=== PATIENT | female | born 1965 | race Caucasian/White ===

== ENCOUNTER 2018-04-16 18:26 | Emergency (ER) | payer OTHER ==
[2018-04-16 19:32] LABS: BILIRUBIN,URINE Small (NEGATIVE); COLOR,URINE Red (YELLOW); GLUCOSE, URINE (UA) Negative (NEGATIVE); KETONES,URINE Negative (NEGATIVE); LEUKOCYTE ESTERASE ,URINE Large (NEGATIVE); NITRATE,URINE Positive (NEGATIVE); OCCULT BLOOD,URINE Large (NEGATIVE); PH,URINE 5.5 (5.0-8.0); PROTEIN,URINE 300 (NEGATIVE); UROBILINOGEN,URINE 0.2 mg/dL (0.2-1.0)
[2018-04-16] MEDS ORDERED: ONDANSETRON HCL 4 MG/2 ML VIAL ONE (19:39)
[2018-04-16] MEDS ORDERED: KETOROLAC TROMETHAMINE 30MG/ML ONE (19:40)
[2018-04-16 19:41] LABS: EOSINOPHILS % (AUTO) 1.6 % (0.0-8.0); HEMATOCRIT 41.4 % (36-48); LYMPHOCYTES % (AUTO) 16.4 % (21.0-51.0); MEAN CORPUSCULAR HEMOGLOBIN 28.4 pg (27.0-33.0); MEAN CORPUSCULAR HGB CONC 32.9 g/dL (32.0-36.0); MEAN CORPUSCULAR VOLUME 86.5 fL (79-99); PLATELET COUNT (AUTO) 289 K/uL (130-400); RED BLOOD CELL COUNT(AUTO) 4.78 MIL/uL (4.00-5.50); RED CELL DISTRIBUTION WIDTH 13.3 % (11.0-15.5); WHITE BLOOD COUNT (AUTO) 12.6 K/uL (4.8-10.8)
[2018-04-16 19:52] LABS: APPEARANCE,URINE Turbid (CLEAR)
[2018-04-16 20:00] LABS: CREATININE 1.2 mg/dL (0.5-1.5); POTASSIUM 3.9 mmol/L (3.5-5.1)
[2018-04-16 20:05] LABS: ALBUMIN 3.5 g/dL (3.5-5.0); BILIRUBIN,DIRECT 0.1 mg/dL (0.0-0.3); BILIRUBIN,TOTAL 0.2 mg/dL (0.2-1.0)
[2018-04-16 20:16] LABS: BACTERIA,URINE Rare /HPF (None Seen); RBC,URINE Full Field /HPF (0-1); SQUAMOUS EPITHELIAL CELL,UR None Seen /HPF (0-2); WBC,URINE >100 /HPF (0-1)
[2018-04-16] MEDS ORDERED: CEFTRIAXONE SODIUM 1 GM ONE (20:31)
== END 2018-04-16 20:46 | disposition home or self-care (01) ==
LOC: EDBD 18:26 → EDH 18:26
DX: N39.0 Urinary tract infection, site not specified (principal); N13.39 Other hydronephrosis; N20.0 Calculus of kidney; Z90.710 Acquired absence of both cervix and uterus; Z88.1 Allergy status to other antibiotic agents
CPT/HCPCS: 36415; 74176; 80048; 80076; 81001; 85025; 87088; 96374; 96375; 99284; J0696; J1885; J2405

== ENCOUNTER 2018-12-21 00:22 | Emergency (ER) | payer OTHER ==
[2018-12-21] MEDS ORDERED: DiphenhydrAMINE HCL 50 MG/ML VIAL ONE (00:48)
[2018-12-21 01:09] LABS: BASOPHILS % (AUTO) 1.2 % (0.0-5.0); EOSINOPHILS % (AUTO) 1.1 % (0.0-8.0); HEMATOCRIT 42.4 % (36-48); LYMPHOCYTES % (AUTO) 34.5 % (21.0-51.0); MEAN CORPUSCULAR HEMOGLOBIN 29.4 pg (27.0-33.0); MEAN CORPUSCULAR HGB CONC 33.5 g/dL (32.0-36.0); MEAN CORPUSCULAR VOLUME 87.8 fL (79-99); MONOCYTES % (AUTO) 3.2 % (3.0-13.0); NUCLEATED RED BLOOD CELLS 0.1 % (0.0-0.19); PLATELET COUNT (AUTO) 243 K/uL (130-400); RED BLOOD CELL COUNT(AUTO) 4.83 MIL/uL (4.00-5.50); RED CELL DISTRIBUTION WIDTH 13.9 % (11.0-15.5); WHITE BLOOD COUNT (AUTO) 8.8 K/uL (4.8-10.8)
[2018-12-21 01:14] LABS: CREATININE 0.9 mg/dL (0.5-1.5); POTASSIUM 3.7 mmol/L (3.5-5.1)
[2018-12-21 02:03] LABS: APPEARANCE,URINE Cloudy (CLEAR); BILIRUBIN,URINE Negative (NEGATIVE); COLOR,URINE Yellow (YELLOW); GLUCOSE, URINE (UA) Negative (NEGATIVE); KETONES,URINE Negative (NEGATIVE); LEUKOCYTE ESTERASE ,URINE Small (NEGATIVE); NITRATE,URINE Negative (NEGATIVE); OCCULT BLOOD,URINE Negative (NEGATIVE); PROTEIN,URINE Negative (NEGATIVE); UROBILINOGEN,URINE 0.2 mg/dL (0.2-1.0)
[2018-12-21 02:05] LABS: HCG,QUAL RESULT NEGATIVE (NEGATIVE)
[2018-12-21] MEDS ORDERED: METHYLPREDNISOLONE SOD SUCC 40MG/ML 1ML ONE (02:10)
[2018-12-21 02:21] LABS: BACTERIA,URINE Rare /HPF (None Seen); RBC,URINE None Seen /HPF (0-1); SQUAMOUS EPITHELIAL CELL,UR Few /HPF (0-2); WBC,URINE 0-1 /HPF (0-1)
== END 2018-12-21 02:28 | disposition home or self-care (01) ==
LOC: EDH 00:22
DX: T78.49XA Other allergy, initial encounter (principal); Z87.442 Personal history of urinary calculi; Z88.1 Allergy status to other antibiotic agents; Z88.8 Allergy status to other drugs, medicaments and biological substances; X58.XXXA Exposure to other specified factors, initial encounter
CPT/HCPCS: 36415; 71045; 80048; 81001; 81025; 83605; 85025; 87804 ×2; 96374; 96375; 99285; J1200; J2920

== ENCOUNTER → 2020-06-18 | Outpatient (CLI) | payer OTHER | END | disposition home or self-care (01) | LOC: SHCH 08:08 | PROVIDERS: ATTEND Internal Medicine Cardiovascular Disease | DX: R01.1 Cardiac murmur, unspecified (principal); R07.9 Chest pain, unspecified | CPT/HCPCS: 93306; 93356 ==

== ENCOUNTER → 2020-06-30 | Outpatient (CLI) | payer OTHER ==
[~2020-06-30] VITALS: Ht 149.9 cm; Wt 105.2 kg
[~2020-06-30] MED LIST: REGADENOSON 0.4 MG/5 ML PF SYG IVP SCH
== END | disposition home or self-care (01) ==
LOC: SHCH 08:05
PROVIDERS: ATTEND Internal Medicine Cardiovascular Disease
DX: R94.31 Abnormal electrocardiogram [ECG] [EKG] (principal); R07.9 Chest pain, unspecified
CPT/HCPCS: 78452; 93017; 96374; A9500 ×2

== ENCOUNTER 2020-11-07 04:30 | Emergency (ER) | payer OTHER ==
[~2020-11-07] VITALS: Ht 149.9 cm; Wt 107.5 kg
[2020-11-07] MEDS ORDERED: 0.9%NACL 1000ML 1,000 ML IV ONE (05:00)
[2020-11-07] MEDS ORDERED: HYDROMORPHONE 1 MG INJ IVP ONE (05:00)
[2020-11-07] MEDS ORDERED: KETOROLAC 30MG VIAL (30MG/ML) IVP ONE (05:00)
[2020-11-07] MEDS ORDERED: ONDANSETRON 4MG INJ IVP ONE (05:00)
[2020-11-07 05:20] LABS: BASOPHILS % (AUTO) 0.4 % (0.0-5.0); EOSINOPHILS % (AUTO) 0.4 % (0.0-8.0); LYMPHOCYTES % (AUTO) 10.2 % (21.0-51.0); MEAN CORPUSCULAR HEMOGLOBIN 28.4 pg (27.0-33.0); MEAN CORPUSCULAR HGB CONC 32.4 g/dL (32.0-36.0); MEAN CORPUSCULAR VOLUME 87.7 fL (79-99); MONOCYTES % (AUTO) 8.4 % (3.0-13.0); PLATELET COUNT (AUTO) 307 K/uL (130-400); RED BLOOD CELL COUNT(AUTO) 4.79 MIL/uL (4.00-5.50); RED CELL DISTRIBUTION WIDTH 12.9 % (11.0-15.5); WHITE BLOOD COUNT (AUTO) 16.1 K/uL (4.8-10.8)
[2020-11-07] MEDS ORDERED: ONDANSETRON 4MG INJ ONE (05:20)
[2020-11-07] MEDS ORDERED: KETOROLAC 30MG VIAL (30MG/ML) ONE (05:20)
[2020-11-07 05:21] LABS: APPEARANCE,URINE SL CLOUDY (CLEAR); BILIRUBIN,URINE MODERATE (NEGATIVE); COLOR,URINE YELLOW (YELLOW); GLUCOSE, URINE (UA) NEGATIVE (NEGATIVE); KETONES,URINE 15 mg/dL (NEGATIVE); LEUKOCYTE ESTERASE ,URINE TRACE (NEGATIVE); NITRATE,URINE NEGATIVE (NEGATIVE); OCCULT BLOOD,URINE TRACE-INTACT (NEGATIVE); PROTEIN,URINE 100 mg/dL (NEGATIVE)
[2020-11-07] MEDS ORDERED: HYDROMORPHONE 1 MG INJ ONE (05:21)
[2020-11-07 05:33] LABS: ALBUMIN 3.4 g/dL (3.5-5.0); BILIRUBIN,TOTAL 0.6 mg/dL (0.2-1.0); CREATININE 0.9 mg/dL (0.5-1.5); POTASSIUM 3.8 mmol/L (3.5-5.1); TOTAL PROTEIN, SERUM 8.2 g/dL (6.0-8.3)
[2020-11-07 05:47] LABS: BACTERIA,URINE Moderate /HPF (None Seen); HYALINE CASTS, URINE 0-1 /LPF (0-1 /LPF); MUCUS,URINE Few LPF (None Seen)
[2020-11-07 06:33] VITALS: BP 119/62
[2020-11-10] MEDS ORDERED: LATA2.5D14 OU (10:59)
[2020-11-10] MEDS ORDERED: BRIM5DRO4 OU (10:59)
== END 2020-11-07 07:10 | disposition home or self-care (01) ==
LOC: EDH 04:30
DX: N39.0 Urinary tract infection, site not specified (principal); Z79.1 Long term (current) use of non-steroidal anti-inflammatories (NSAID); Z79.899 Other long term (current) drug therapy; Z88.0 Allergy status to penicillin; Z88.1 Allergy status to other antibiotic agents; Z88.2 Allergy status to sulfonamides
CPT/HCPCS: 36415; 74176; 80053; 81001; 85025; 87088; 96361; 96374; 96375; 99284; J1170; J1885; J2405; J7030

== ENCOUNTER 2020-11-09 09:03 | Inpatient (IN) | payer OTHER ==
[~2020-11-09] VITALS: Ht 149.9 cm; Wt 102.7 kg
[2020-11-09 09:35] LABS: BASOPHILS % (AUTO) 0.9 % (0.0-5.0); EOSINOPHILS % (AUTO) 1.3 % (0.0-8.0); HEMATOCRIT 42.3 % (36-48); MEAN CORPUSCULAR HEMOGLOBIN 28.6 pg (27.0-33.0); MEAN CORPUSCULAR HGB CONC 32.6 g/dL (32.0-36.0); MEAN CORPUSCULAR VOLUME 87.8 fL (79-99); MONOCYTES % (AUTO) 8.7 % (3.0-13.0); NEUTROPHILS % (AUTO) 61.7 % (40.0-77.0); PLATELET COUNT (AUTO) 315 K/uL (130-400); RED BLOOD CELL COUNT(AUTO) 4.82 MIL/uL (4.00-5.50); RED CELL DISTRIBUTION WIDTH 12.8 % (11.0-15.5); WHITE BLOOD COUNT (AUTO) 7.8 K/uL (4.8-10.8)
[2020-11-09 09:43] LABS: CREATININE 0.7 mg/dL (0.5-1.5)
[2020-11-09 09:48] LABS: ALBUMIN 3.4 g/dL (3.5-5.0); BILIRUBIN,TOTAL 0.3 mg/dL (0.2-1.0); TOTAL PROTEIN, SERUM 8.4 g/dL (6.0-8.3)
[2020-11-09 09:59] LABS: APPEARANCE,URINE Clear (CLEAR); BILIRUBIN,URINE Negative (NEGATIVE); COLOR,URINE Yellow (YELLOW); GLUCOSE, URINE (UA) Negative (NEGATIVE); KETONES,URINE 40 mg/dL (NEGATIVE); LEUKOCYTE ESTERASE ,URINE Negative (NEGATIVE); NITRATE,URINE Negative (NEGATIVE); OCCULT BLOOD,URINE Negative (NEGATIVE); PROTEIN,URINE Negative (NEGATIVE)
[2020-11-09 10:05] LABS: AMPHET/METH SCREEN,URINE NEGATIVE (NEGATIVE); BARBITURATE SCREEN, URINE NEGATIVE (NEGATIVE); BENZODIAZEPINES SCREEN,URINE NEGATIVE (NEGATIVE); CANNABINOID SCREEN,URINE NEGATIVE (NEGATIVE); COCAINE SCREEN,URINE NEGATIVE (NEGATIVE); OPIATE SCREEN,URINE NEGATIVE (NEGATIVE); PHENCYCLIDINE SCREEN,URINE NEGATIVE (NEGATIVE)
[2020-11-09] MEDS ORDERED: ZOSYN 3.375GM+NS 50ML 50 ML ONE (10:20)
[2020-11-09] MEDS ORDERED: 0.9%NACL 50ML 50 ML IV ONE ×2 (10:21→17:32)
[2020-11-09] MEDS ORDERED: ASPIRIN 325MG TAB ONE (10:27)
[2020-11-09 10:29] LABS: RBC,URINE 0-1 /HPF (0-1); WBC,URINE 0-1 /HPF (0-1)
[2020-11-09 10:30] LABS: BACTERIA,URINE None Seen /HPF (None Seen); SQUAMOUS EPITHELIAL CELL,UR 0-2 /HPF (0-2)
[2020-11-09] MEDS ORDERED: ACETAMINOPHEN 325 MG TAB PO PRN (11:00)
[2020-11-09] MEDS ORDERED: DiphenhydrAMINE HCL 50 MG/ML VIAL IV PRN (11:00)
[2020-11-09] MEDS ORDERED: ONDANSETRON 4MG INJ IV PRN (11:00)
[2020-11-09] MEDS: 0.9%NACL 1000ML 1,000 ML IV SCH ×3 (12:50→21:53)
[2020-11-09] MEDS ORDERED: ZOSYN 3.375GM+NS 50ML 3.38 GM in 0.9%NACL 50ML 50 ML IV SCH (17:00)
[2020-11-09] MEDS: ZOSYN 3.375GM +NS 50ML IV SCH (17:37)
[2020-11-09 17:54] LABS: CHOLESTEROL 182 mg/dL (<200); HDL CHOLESTEROL 46 mg/dL (35-85); LDL DIRECT 110 mg/dL (0-99); TRIGLYCERIDES 95 mg/dL (30-200)
[2020-11-09] MEDS: FAMOTIDINE 20MG VIAL IV SCH (21:53)
[2020-11-09] MEDS: ATORVASTATIN 10 MG TABLET PO SCH (21:53)
[2020-11-10] MEDS: ZOSYN 3.375GM +NS 50ML IV SCH ×3 (00:40→18:25)
[2020-11-10 05:47] LABS: BASOPHILS % (AUTO) 0.7 % (0.0-5.0); EOSINOPHILS % (AUTO) 1.9 % (0.0-8.0); HEMATOCRIT 40.2 % (36-48); LYMPHOCYTES % (AUTO) 25.9 % (21.0-51.0); MEAN CORPUSCULAR HEMOGLOBIN 28.5 pg (27.0-33.0); MEAN CORPUSCULAR HGB CONC 32.6 g/dL (32.0-36.0); MEAN CORPUSCULAR VOLUME 87.6 fL (79-99); MONOCYTES % (AUTO) 8.5 % (3.0-13.0); NEUTROPHILS % (AUTO) 62.1 % (40.0-77.0); PLATELET COUNT (AUTO) 304 K/uL (130-400); RED BLOOD CELL COUNT(AUTO) 4.59 MIL/uL (4.00-5.50); RED CELL DISTRIBUTION WIDTH 12.9 % (11.0-15.5); WHITE BLOOD COUNT (AUTO) 8.8 K/uL (4.8-10.8)
[2020-11-10 06:25] LABS: HEMOGLOBIN A1C 5.7 % (4.0-6.0)
[2020-11-10] MEDS: 0.9%NACL 1000ML 1,000 ML IV SCH ×5 (06:25→22:44)
[2020-11-10 06:28] LABS: ALBUMIN 3.1 g/dL (3.5-5.0); BILIRUBIN,TOTAL 0.4 mg/dL (0.2-1.0); CREATININE 0.6 mg/dL (0.5-1.5); POTASSIUM 3.9 mmol/L (3.5-5.1); TOTAL PROTEIN, SERUM 7.7 g/dL (6.0-8.3)
[2020-11-10] MEDS ORDERED: DIATR MEGLU/DIATRIZOATE SODIUM 30 ML BOTTLE ONE (08:33)
[2020-11-10] MEDS ORDERED: ENOXAPARIN SODIUM 30 MG/0.3 ML SQ SCH (09:00)
[2020-11-10] MEDS ORDERED: ASPIRIN 81 MG EC TAB PO SCH (09:00)
[2020-11-10 09:10] VITALS: BP 174/81
[2020-11-10] MEDS ORDERED: BRIM5DRO4 OU ×2 (10:59)
[2020-11-10] MEDS ORDERED: LATA2.5D14 OU ×2 (10:59)
[2020-11-10] MEDS: FAMOTIDINE 20MG VIAL IV SCH ×2 (11:14→20:25)
[2020-11-10 12:00] VITALS: BP 182/77
[2020-11-10] MEDS ORDERED: IOHEXOL-350 75 ML VIAL IV ONE (12:57)
[2020-11-10 16:00] VITALS: BP 147/72
[2020-11-10] MEDS: KETOROLAC 15MG/ML VIAL (15MG/ML) IV PRN ×2 (17:04→23:05)
[2020-11-10 19:40] VITALS: BP 149/66
[2020-11-10] MEDS: ATORVASTATIN 10 MG TABLET PO SCH (20:26)
[2020-11-10 23:31] VITALS: BP 150/75
[2020-11-11] MEDS: ZOSYN 3.375GM +NS 50ML IV SCH ×3 (02:35→19:33)
[2020-11-11 04:30] VITALS: BP 170/72
[2020-11-11 05:08] LABS: BASOPHILS % (AUTO) 0.5 % (0.0-5.0); EOSINOPHILS % (AUTO) 1.6 % (0.0-8.0); HEMATOCRIT 40.6 % (36-48); LYMPHOCYTES % (AUTO) 17.9 % (21.0-51.0); MEAN CORPUSCULAR HEMOGLOBIN 27.9 pg (27.0-33.0); MEAN CORPUSCULAR HGB CONC 31.8 g/dL (32.0-36.0); MEAN CORPUSCULAR VOLUME 87.9 fL (79-99); MONOCYTES % (AUTO) 7.2 % (3.0-13.0); NEUTROPHILS % (AUTO) 72.2 % (40.0-77.0); PLATELET COUNT (AUTO) 318 K/uL (130-400); RED BLOOD CELL COUNT(AUTO) 4.62 MIL/uL (4.00-5.50); RED CELL DISTRIBUTION WIDTH 12.5 % (11.0-15.5); WHITE BLOOD COUNT (AUTO) 11.5 K/uL (4.8-10.8)
[2020-11-11 05:33] LABS: ALBUMIN 3.1 g/dL (3.5-5.0); BILIRUBIN,TOTAL 0.6 mg/dL (0.2-1.0); CREATININE 0.7 mg/dL (0.5-1.5); POTASSIUM 3.6 mmol/L (3.5-5.1); TOTAL PROTEIN, SERUM 7.6 g/dL (6.0-8.3)
[2020-11-11 08:00] VITALS: BP 128/74
[2020-11-11] MEDS ORDERED: HYDROMORPHONE 0.5 MG SYG (0.5MG/0.5ML) IVP PRN (08:30)
[2020-11-11] MEDS: FAMOTIDINE 20MG VIAL IV SCH ×2 (09:00→19:48)
[2020-11-11] MEDS ORDERED: ENOXAPARIN SODIUM 40 MG/0.4 ML SYRINGE SQ SCH (09:00)
[2020-11-11] MEDS: HYDROCHLOROTHIAZIDE 25 MG TABLET PO SCH (09:00)
[2020-11-11] MEDS: KETOROLAC 15MG/ML VIAL (15MG/ML) IV PRN ×2 (09:00→16:35)
[2020-11-11] MEDS: LISINOPRIL 10 MG TABLET PO SCH (09:00)
[2020-11-11 09:44] LABS: INR 1.05 (0.85-1.15); PROTHROMBIN TIME 11.4 SEC (9.6-11.6)
[2020-11-11 09:45] LABS: PARTIAL THROMBOPLASTIN TIME 28.8 SEC (26.3-35.5)
[2020-11-11 12:00] VITALS: BP 162/78
[2020-11-11 16:00] VITALS: BP 159/79
[2020-11-11 19:35] VITALS: BP 145/73
[2020-11-11] MEDS: ATORVASTATIN 10 MG TABLET PO SCH (19:48)
[2020-11-11] MEDS: 0.9%NACL 1000ML 1,000 ML IV SCH (19:49)
[2020-11-12] VITALS (7 sets, daily range): BP systolic 139–167; BP diastolic 72–82
[2020-11-12] MEDS: KETOROLAC 15MG/ML VIAL (15MG/ML) IV PRN ×2 (00:01→09:38)
[2020-11-12] MEDS: ZOSYN 3.375GM +NS 50ML IV SCH ×3 (03:21→17:10)
[2020-11-12 05:08] LABS: BASOPHILS % (AUTO) 0.7 % (0.0-5.0); EOSINOPHILS % (AUTO) 2.3 % (0.0-8.0); HEMATOCRIT 37.7 % (36-48); LYMPHOCYTES % (AUTO) 21.1 % (21.0-51.0); MEAN CORPUSCULAR HEMOGLOBIN 28.4 pg (27.0-33.0); MEAN CORPUSCULAR HGB CONC 32.9 g/dL (32.0-36.0); MEAN CORPUSCULAR VOLUME 86.5 fL (79-99); MONOCYTES % (AUTO) 8.8 % (3.0-13.0); NEUTROPHILS % (AUTO) 66.4 % (40.0-77.0); PLATELET COUNT (AUTO) 316 K/uL (130-400); RED BLOOD CELL COUNT(AUTO) 4.36 MIL/uL (4.00-5.50); RED CELL DISTRIBUTION WIDTH 12.5 % (11.0-15.5); WHITE BLOOD COUNT (AUTO) 8.7 K/uL (4.8-10.8)
[2020-11-12 05:17] LABS: CREATININE 0.7 mg/dL (0.5-1.5); CRP QUANTITATIVE 127.9 mg/L (0.00-9.0); POTASSIUM 3.7 mmol/L (3.5-5.1)
[2020-11-12] MEDS: FAMOTIDINE 20MG VIAL IV SCH ×2 (09:36→20:21)
[2020-11-12] MEDS: HYDROCHLOROTHIAZIDE 25 MG TABLET PO SCH (09:36)
[2020-11-12] MEDS: LISINOPRIL 10 MG TABLET PO SCH (09:37)
[2020-11-12] MEDS: 0.9%NACL 1000ML 1,000 ML IV SCH (11:40)
[2020-11-12] MEDS: ATORVASTATIN 10 MG TABLET PO SCH (20:21)
[2020-11-13] MEDS: ZOSYN 3.375GM +NS 50ML IV SCH ×2 (02:39→10:03)
[2020-11-13] MEDS: KETOROLAC 15MG/ML VIAL (15MG/ML) IV PRN (02:43)
[2020-11-13] MEDS: 0.9%NACL 1000ML 1,000 ML IV SCH (02:43)
[2020-11-13 03:18] VITALS: BP 142/68
[2020-11-13 04:57] LABS: BASOPHILS % (AUTO) 0.5 % (0.0-5.0); EOSINOPHILS % (AUTO) 2.2 % (0.0-8.0); HEMATOCRIT 39.4 % (36-48); LYMPHOCYTES % (AUTO) 20.1 % (21.0-51.0); MEAN CORPUSCULAR HGB CONC 31.7 g/dL (32.0-36.0); MEAN CORPUSCULAR VOLUME 88.3 fL (79-99); MONOCYTES % (AUTO) 9.1 % (3.0-13.0); NEUTROPHILS % (AUTO) 67.4 % (40.0-77.0); PLATELET COUNT (AUTO) 322 K/uL (130-400); RED BLOOD CELL COUNT(AUTO) 4.46 MIL/uL (4.00-5.50); RED CELL DISTRIBUTION WIDTH 12.5 % (11.0-15.5); WHITE BLOOD COUNT (AUTO) 9.5 K/uL (4.8-10.8)
[2020-11-13 05:08] LABS: CREATININE 0.8 mg/dL (0.5-1.5); CRP QUANTITATIVE 95.1 mg/L (0.00-9.0); POTASSIUM 3.5 mmol/L (3.5-5.1)
[2020-11-13 07:51] VITALS: BP 120/60
[2020-11-13] MEDS: LISINOPRIL 10 MG TABLET PO SCH (10:02)
[2020-11-13] MEDS: HYDROCHLOROTHIAZIDE 25 MG TABLET PO SCH (10:02)
[2020-11-13] MEDS: FAMOTIDINE 20MG VIAL IV SCH (10:05)
[2020-11-13 12:22] VITALS: BP 136/75
[2020-11-14] MEDS ORDERED: CEPH500B PO (17:28)
== END 2020-11-13 14:50 | disposition home or self-care (01) | DRG 391 ==
LOC: EDH 09:03 → EDHIP 10:48 → 3AH 11-10 07:49
PROVIDERS: ADMIT Internal Medicine; ATTEND Internal Medicine
DX: K57.20 Diverticulitis of large intestine with perforation and abscess without bleeding (principal); K65.0 Generalized (acute) peritonitis; Z68.42 Body mass index [BMI] 45.0-49.9, adult; E78.5 Hyperlipidemia, unspecified; N20.0 Calculus of kidney; I10 Essential (primary) hypertension; E66.01 Morbid (severe) obesity due to excess calories; R03.0 Elevated blood-pressure reading, without diagnosis of hypertension; Z88.0 Allergy status to penicillin; Z88.2 Allergy status to sulfonamides; Z88.8 Allergy status to other drugs, medicaments and biological substances; Z87.442 Personal history of urinary calculi; Z87.440 Personal history of urinary (tract) infections; Z90.710 Acquired absence of both cervix and uterus; Z90.721 Acquired absence of ovaries, unilateral; Z82.49 Family history of ischemic heart disease and other diseases of the circulatory system
CPT/HCPCS: 36415; 70450; 70551; 71045; 74176; 74177; 80048; 80053; 80061; 80305; 81001; 82550; 82607; 83036; 83690; 84145; 84484; 85025; 85610; 85651; 85730; 86140; 93005; 97039; G0378; J1200; J1650; J1885; J2543; J3490; J7030; Q9963; Q9967

== ENCOUNTER 2020-11-14 13:54 | Emergency (ER) | payer OTHER ==
[~2020-11-14] VITALS: Ht 149.9 cm; Wt 107.5 kg
[~2020-11-14 13:54] MED LIST changes: +BRIM5DRO4 OU; +LATA2.5D14 OU; -REGADENOSON 0.4 MG/5 ML PF SYG IVP SCH
[2020-11-14 13:55] VITALS: BP 123/75
[2020-11-14 16:06] LABS: APPEARANCE,URINE CLOUDY (CLEAR); BILIRUBIN,URINE SMALL (NEGATIVE); COLOR,URINE YELLOW (YELLOW); GLUCOSE, URINE (UA) NEGATIVE (NEGATIVE); KETONES,URINE >=80 mg/dL (NEGATIVE); LEUKOCYTE ESTERASE ,URINE LARGE (NEGATIVE); NITRATE,URINE NEGATIVE (NEGATIVE); OCCULT BLOOD,URINE LARGE (NEGATIVE); PROTEIN,URINE 30 mg/dL (NEGATIVE); UROBILINOGEN,URINE 0.2 mg/dL (0.2-1.0)
[2020-11-14 16:29] LABS: WBC,URINE 26-50 /HPF (0-1)
[2020-11-14 16:30] LABS: BACTERIA,URINE Few /HPF (None Seen); MUCUS,URINE Few LPF (None Seen); SQUAMOUS EPITHELIAL CELL,UR Few /HPF (0-2)
[2020-11-14] MEDS ORDERED: CEPH500B PO (17:28)
[2020-11-14] MEDS ORDERED: CEFTRIAXONE 1G VIAL ONE (17:29)
[2020-11-14] MEDS ORDERED: CEFTRIAXONE 1G VIAL IM ONE (18:30)
== END 2020-11-14 17:49 | disposition home or self-care (01) ==
LOC: EDH 13:54
DX: N39.0 Urinary tract infection, site not specified (principal); Z88.1 Allergy status to other antibiotic agents; Z88.8 Allergy status to other drugs, medicaments and biological substances; Z90.710 Acquired absence of both cervix and uterus; E66.01 Morbid (severe) obesity due to excess calories; Z68.42 Body mass index [BMI] 45.0-49.9, adult
CPT/HCPCS: 81001; 87088; 96372; 99283; J0696

== ENCOUNTER → 2021-03-16 | Outpatient (CLI) | payer OTHER ==
[~2021-03-16] MED LIST changes: +CEPH500B PO; +IOHEXOL-350 50ML VIAL IV ONE
== END | disposition home or self-care (01) ==
LOC: RAH 08:39
PROVIDERS: ATTEND Internal Medicine Gastroenterology
DX: K57.30 Diverticulosis of large intestine without perforation or abscess without bleeding (principal); K76.0 Fatty (change of) liver, not elsewhere classified; N20.0 Calculus of kidney; N28.1 Cyst of kidney, acquired; E66.9 Obesity, unspecified; Z68.42 Body mass index [BMI] 45.0-49.9, adult; Z90.710 Acquired absence of both cervix and uterus
CPT/HCPCS: 74178; Q9967

== ENCOUNTER 2021-03-28 13:01 | Emergency (ER) | payer OTHER ==
[~2021-03-28] VITALS: Ht 149.9 cm; Wt 99.3 kg
[~2021-03-28 13:01] MED LIST changes: -IOHEXOL-350 50ML VIAL IV ONE
[2021-03-28] MEDS ORDERED: NITROGLYCERIN 1GM OINT 1 INCH/1GM TD ONE ×2 (14:30→15:34)
[2021-03-28] MEDS ORDERED: ASPIRIN 325MG TAB PO ONE (14:30)
[2021-03-28] MEDS ORDERED: ONDANSETRON 4MG INJ IVP ONE (14:30)
[2021-03-28 15:28] LABS: BASOPHILS % (AUTO) 0.8 % (0.0-5.0); EOSINOPHILS % (AUTO) 0.6 % (0.0-8.0); HEMATOCRIT 43.9 % (36-48); MEAN CORPUSCULAR HEMOGLOBIN 28.8 pg (27.0-33.0); MEAN CORPUSCULAR HGB CONC 31.7 g/dL (32.0-36.0); MEAN CORPUSCULAR VOLUME 90.9 fL (79-99); MONOCYTES % (AUTO) 5.4 % (3.0-13.0); NEUTROPHILS % (AUTO) 75.7 % (40.0-77.0); PLATELET COUNT (AUTO) 277 K/uL (130-400); RED BLOOD CELL COUNT(AUTO) 4.83 MIL/uL (4.00-5.50); RED CELL DISTRIBUTION WIDTH 12.4 % (11.0-15.5); WHITE BLOOD COUNT (AUTO) 8.5 K/uL (4.8-10.8)
[2021-03-28] MEDS ORDERED: ONDANSETRON 4MG INJ ONE (15:34)
[2021-03-28] MEDS ORDERED: ASPIRIN 325MG TAB ONE (15:34)
[2021-03-28 15:36] LABS: CREATININE 0.6 mg/dL (0.5-1.5); POTASSIUM 4.1 mmol/L (3.5-5.1)
[2021-03-28 15:40] LABS: ALBUMIN 3.6 g/dL (3.5-5.0); BILIRUBIN,TOTAL 0.4 mg/dL (0.2-1.0); MAGNESIUM 2.2 mg/dL (1.80-2.40); TOTAL PROTEIN, SERUM 8.1 g/dL (6.0-8.3)
[2021-03-28 16:00] LABS: B-TYPE NATRIURETIC PEPTIDE 23 pg/mL (0-100)
[2021-03-28 23:30] VITALS: BP 144/68
== END 2021-03-28 23:49 | disposition home or self-care (01) ==
LOC: EDH 13:01
DX: R07.89 Other chest pain (principal); R61 Generalized hyperhidrosis; R11.0 Nausea; Z87.442 Personal history of urinary calculi; Z90.710 Acquired absence of both cervix and uterus; Z88.1 Allergy status to other antibiotic agents; Z88.2 Allergy status to sulfonamides; Z88.8 Allergy status to other drugs, medicaments and biological substances; Z79.899 Other long term (current) drug therapy
CPT/HCPCS: 36415; 71045; 80053; 82550; 83690; 83735; 83880; 84484 ×3; 85025; 85378; 93005 ×3; 96374; 99285; J2405

== ENCOUNTER 2021-07-10 07:05 | Emergency (ER) | payer OTHER ==
[~2021-07-10] VITALS: Ht 149.9 cm; Wt 97.1 kg
[2021-07-10 07:39] LABS: BASOPHILS % (AUTO) 0.9 % (0.0-5.0); EOSINOPHILS % (AUTO) 0.9 % (0.0-8.0); HEMATOCRIT 45.2 % (36-48); LYMPHOCYTES % (AUTO) 19.1 % (21.0-51.0); MEAN CORPUSCULAR HEMOGLOBIN 28.3 pg (27.0-33.0); MEAN CORPUSCULAR HGB CONC 31.9 g/dL (32.0-36.0); MEAN CORPUSCULAR VOLUME 88.8 fL (79-99); NEUTROPHILS % (AUTO) 73.7 % (40.0-77.0); PLATELET COUNT (AUTO) 279 K/uL (130-400); RED BLOOD CELL COUNT(AUTO) 5.09 MIL/uL (4.00-5.50); RED CELL DISTRIBUTION WIDTH 12.7 % (11.0-15.5); WHITE BLOOD COUNT (AUTO) 7.6 K/uL (4.8-10.8)
[2021-07-10] MEDS ORDERED: 0.9%NACL 1000ML 1,000 ML IV ONE (08:00)
[2021-07-10] MEDS ORDERED: KETOROLAC 30MG VIAL (30MG/ML) IVP ONE (08:00)
[2021-07-10] MEDS ORDERED: ONDANSETRON 4MG INJ IVP ONE (08:00)
[2021-07-10 08:10] LABS: ALBUMIN 3.8 g/dL (3.5-5.0); BILIRUBIN,TOTAL 0.2 mg/dL (0.2-1.0); CREATININE 0.6 mg/dL (0.5-1.5); POTASSIUM 3.8 mmol/L (3.5-5.1); TOTAL PROTEIN, SERUM 8.1 g/dL (6.0-8.3)
[2021-07-10 09:00] LABS: APPEARANCE,URINE Clear (CLEAR); BILIRUBIN,URINE Negative (NEGATIVE); COLOR,URINE Yellow (YELLOW); GLUCOSE, URINE (UA) Negative (NEGATIVE); KETONES,URINE Negative (NEGATIVE); LEUKOCYTE ESTERASE ,URINE Large (NEGATIVE); NITRATE,URINE Negative (NEGATIVE); OCCULT BLOOD,URINE Negative (NEGATIVE); PH,URINE 7.5 (5.0-8.0); PROTEIN,URINE Negative (NEGATIVE); UROBILINOGEN,URINE 0.2 mg/dL (0.2-1.0)
[2021-07-10 09:20] LABS: RBC,URINE None Seen /HPF (0-1)
[2021-07-10 09:21] LABS: BACTERIA,URINE Few /HPF (None Seen); SQUAMOUS EPITHELIAL CELL,UR 0-2 /HPF (0-2)
[2021-07-10] MEDS ORDERED: CEPH500B PO (09:36)
[2021-07-10 09:38] VITALS: BP 145/67
[2021-07-10] MEDS ORDERED: MACR100 PO (20:56)
== END 2021-07-10 09:51 | disposition home or self-care (01) ==
LOC: EDH 07:05
DX: N39.0 Urinary tract infection, site not specified (principal); Z88.1 Allergy status to other antibiotic agents; Z88.8 Allergy status to other drugs, medicaments and biological substances; Z88.2 Allergy status to sulfonamides; Z79.899 Other long term (current) drug therapy; Z98.890 Other specified postprocedural states
CPT/HCPCS: 36415; 74176; 80053; 81001; 83690; 85025; 87088; 96361; 96374; 96375; 99284; J1885; J2405; J7030

== ENCOUNTER 2021-07-17 04:27 | Emergency (ER) | payer OTHER ==
[~2021-07-17] VITALS: Ht 149.9 cm; Wt 94.3 kg
[~2021-07-17 04:27] MED LIST changes: +MACR100 PO
[2021-07-17 04:58] VITALS: BP 169/77
[2021-07-17] MEDS ORDERED: LISINOPRIL 5 MG TABLET PO SCH (05:30)
== END 2021-07-17 05:30 | disposition home or self-care (01) ==
LOC: EDH 04:27
DX: I10 Essential (primary) hypertension (principal); K21.9 Gastro-esophageal reflux disease without esophagitis; N95.1 Menopausal and female climacteric states; E66.01 Morbid (severe) obesity due to excess calories; Z68.41 Body mass index [BMI] 40.0-44.9, adult; Z88.0 Allergy status to penicillin; Z88.1 Allergy status to other antibiotic agents; Z88.2 Allergy status to sulfonamides

== ENCOUNTER 2021-07-17 18:49 | Emergency (ER) | payer OTHER ==
[~2021-07-17] VITALS: Ht 149.9 cm; Wt 94.3 kg
[2021-07-17 20:00] VITALS: BP 157/80
== END 2021-07-17 20:08 | disposition home or self-care (01) ==
LOC: EDH 18:49
DX: F43.22 Adjustment disorder with anxiety (principal); I10 Essential (primary) hypertension; E66.01 Morbid (severe) obesity due to excess calories; Z87.440 Personal history of urinary (tract) infections; Z88.0 Allergy status to penicillin; Z88.1 Allergy status to other antibiotic agents; Z88.2 Allergy status to sulfonamides; Z68.42 Body mass index [BMI] 45.0-49.9, adult
CPT/HCPCS: 99281

== ENCOUNTER 2021-09-03 19:34 | Emergency (ER) | payer OTHER ==
[~2021-09-03] VITALS: Ht 152.4 cm; Wt 112.0 kg
[2021-09-03 19:57] LABS: BILIRUBIN,URINE NEGATIVE (NEGATIVE); COLOR,URINE YELLOW (YELLOW); GLUCOSE, URINE (UA) NEGATIVE (NEGATIVE); KETONES,URINE NEGATIVE (NEGATIVE); LEUKOCYTE ESTERASE ,URINE LARGE (NEGATIVE); NITRATE,URINE NEGATIVE (NEGATIVE); OCCULT BLOOD,URINE TRACE-LYSED (NEGATIVE); PH,URINE 7.5 (5.0-8.0); PROTEIN,URINE NEGATIVE (NEGATIVE); UROBILINOGEN,URINE 0.2 mg/dL (0.2-1.0)
[2021-09-03] MEDS ORDERED: 0.9% NACL 500ML IV.SOLN 500 ML IV ONE (20:00)
[2021-09-03] MEDS ORDERED: LORAZEPAM 2 MG/ML 1 ML VIAL IVP ONE (20:00)
[2021-09-03] MEDS ORDERED: KETOROLAC 15MG/ML VIAL (15MG/ML) IV ONE (20:00)
[2021-09-03 20:01] LABS: APPEARANCE,URINE SLIGHTLY CLOUDY (CLEAR)
[2021-09-03 20:03] LABS: BASOPHILS % (AUTO) 0.7 % (0.0-5.0); EOSINOPHILS % (AUTO) 0.8 % (0.0-8.0); HEMATOCRIT 42.6 % (36-48); LYMPHOCYTES % (AUTO) 22.9 % (21.0-51.0); MEAN CORPUSCULAR HGB CONC 33.1 g/dL (32.0-36.0); MEAN CORPUSCULAR VOLUME 87.5 fL (79-99); MONOCYTES % (AUTO) 4.8 % (3.0-13.0); NEUTROPHILS % (AUTO) 70.4 % (40.0-77.0); PLATELET COUNT (AUTO) 244 K/uL (130-400); RED BLOOD CELL COUNT(AUTO) 4.87 MIL/uL (4.00-5.50); RED CELL DISTRIBUTION WIDTH 12.4 % (11.0-15.5)
[2021-09-03 20:09] LABS: BACTERIA,URINE Few /HPF (None Seen); MUCUS,URINE Few LPF (None Seen); SQUAMOUS EPITHELIAL CELL,UR Rare /HPF (0-2)
[2021-09-03 20:11] LABS: CREATININE 0.7 mg/dL (0.5-1.5); POTASSIUM 3.8 mmol/L (3.5-5.1)
[2021-09-03 20:20] LABS: ALBUMIN 3.9 g/dL (3.5-5.0); TOTAL PROTEIN, SERUM 8.6 g/dL (6.0-8.3)
[2021-09-03] MEDS ORDERED: NITROFURANTOIN MONOHYD/M-CRYST 100 MG CAPSULE PO ONE (20:30)
[2021-09-03] MEDS ORDERED: DIAZEPAM 5 MG/ML 2 ML SYG IVP ONE (20:30)
[2021-09-03] MEDS ORDERED: CEFTRIAXONE 1G VIAL IVP ONE (20:30)
[2021-09-03] MEDS ORDERED: MACR100 PO (21:19)
[2021-09-03] MEDS ORDERED: CYCL5TAB PO (21:19)
[2021-09-03 21:30] VITALS: BP 122/56
== END 2021-09-03 21:58 | disposition home or self-care (01) ==
LOC: EDH 19:34
DX: N39.0 Urinary tract infection, site not specified (principal); M54.6 Pain in thoracic spine; R51.9 Headache, unspecified; I11.9 Hypertensive heart disease without heart failure; E66.01 Morbid (severe) obesity due to excess calories; F41.9 Anxiety disorder, unspecified; Z88.1 Allergy status to other antibiotic agents; Z88.0 Allergy status to penicillin; Z88.2 Allergy status to sulfonamides; Z90.721 Acquired absence of ovaries, unilateral; Z79.1 Long term (current) use of non-steroidal anti-inflammatories (NSAID); Z68.42 Body mass index [BMI] 45.0-49.9, adult
CPT/HCPCS: 99284; 96374; 96361; 96375; 84484; 80053; 85025; 87088; 81001; 36415; 93005; J7040; J3360; J0696; J1885